=== PATIENT | male | born 1995 | race Caucasian/White ===

== ENCOUNTER 2021-01-05 19:35 | Emergency (ER) | payer MEDICAID, OTHER ==
[~2021-01-05] VITALS: Ht 185.4 cm; Wt 74.3 kg
[2021-01-05] MEDS ORDERED: predniSONE 20 MG TAB PO ONE (21:45)
[2021-01-05] MEDS ORDERED: diphenhydrAMINE 50MG CAP PO ONE (21:45)
[2021-01-05] MEDS ORDERED: BENA25CA4 PO (21:50)
[2021-01-05] MEDS ORDERED: PRED10TA2 PO (21:50)
[2021-01-05 22:10] VITALS: BP 122/75
== END 2021-01-05 22:20 | disposition home or self-care (01) ==
LOC: M ED 19:35
DX: L51.9 Erythema multiforme, unspecified (principal)
CPT/HCPCS: 99283; J7512